=== PATIENT | male | born 1950 | race Caucasian/White ===

== ENCOUNTER 2016-10-07 01:32 | Emergency (ER) | payer OTHER ==
[2016-10-07] MEDS ORDERED: Dextrose 5%-0.45% NaCl 1,000 ML IV SCH (02:00)
--- NOTE | 2016-10-07 02:02 | EDM.PDOC ---
ED HPI GENERAL MEDICAL PROBLEM - General Chief Complaint: Diabetic Complaint Stated Complaint: [facility] Time Seen by Provider: 10/07/16 01:57 Source of Information: Reports: Patient, EMS Notes Reviewed, Family History Limitations: Reports: No Limitations - History of Present Illness INITIAL COMMENTS - FREE TEXT/NARRATIVE: pt came to his mothers place anf flopped down in a chair and turned his insulin pump off and at that point he became unresponsive. His mother was not able to get any juice or sugar into him so she called ems. Onset: Today Duration: Hour(s): Associated Symptoms: Reports: Confusion, Cough, Other (pt became unresponsive. ) denies pain Pain Score (Numeric/FACES): 0 - Related Data Allergies Allergy/AdvReac Type Severity Reaction Status Date / Time Penicillins Allergy Hives Verified 10/07/16 01:37 Home Meds: Home Meds Aspirin/Calcium Carbonate/Mag [Aspirin Buffered 325 mg Tab] 325 mg PO BID [History] Carvedilol [Coreg] 25 mg PO BID 10/07/16 [History] Ferrous Sulfate [Iron] 325 mg PO BID 10/07/16 [History] Fish Oil/[place]-3 Fatty Acids [Fish Oil 1,000 MG] 1,000 mg PO BID 10/07/16 [ History] Insulin Aspart [NovoLOG] 100 unit SUBCUT ASDIRECTED 10/07/16 [History] Insulin Pump Controller [Snap Insulin Pump Controller] 1 each MC ASDIRECTED 12/16 [History] Levothyroxine 175 mg PO DAILY 10/07/16 [History] Lisinopril/Hydrochlorothiazide [Zestoretic 20-12.5 mg Tablet] 2 each PO DAILY [History] amLODIPine [Norvasc] 5 mg PO DAILY 10/07/16 [History] atorvaSTATin [Lipitor] 40 mg PO DAILY 10/07/16 [History] ED ROS GENERAL - Review of Systems Review Of Systems: See Below Constitutional: Reports: No Symptoms HEENT: Reports: No Symptoms Respiratory: Reports: Cough Cardiovascular: Reports: No Symptoms Endocrine: Reports: Low Glucose GI/Abdominal: Reports: No Symptoms, Other (pt has a insulin pump which is now off. ) : Reports: No Symptoms Musculoskeletal: Reports: No Symptoms Skin: Reports: No Symptoms ED EXAM GENERAL NO PERIP PULSE - Physical Exam Exam: See Below Text/Narrative:: pt is now alert and is able to give some history. He evidently has not eaten all day. He came to his mothers house and collapsed in the chair. He turned his insulin pump off and he became unresponsive. He normally gets 75-80 units of insulin daily. Exam Limited By: No Limitations General Appearance: Alert, Other ( still not giving a real good history. ) Ears: Normal TMs Nose: Normal Inspection Throat/Mouth: Normal Inspection Head: Atraumatic Neck: Normal Inspection Respiratory/Chest: No Respiratory Distress Cardiovascular: Regular Rate, Rhythm GI/Abdominal: Other (pt has slight tenderness where he feels he has a hernia, There is a insulin pump in place. ) Rectal (Males) Exam: Deferred Back Exam: Normal Inspection Extremities: Normal Inspection Neurological: Alert, Other (pt is slower to respond. ) Course - Vital Signs Last Recorded V/S: Last Vital Signs Temp 35.6 C 10/07/16 01:35 Pulse 55 L 10/07/16 01:35 Resp 17 10/07/16 01:35 BP 133/65 10/07/16 01:35 Pulse Ox 92 L 10/07/16 01:35 - Orders/Labs/Meds Orders: Active Orders 24 hr Category Date Time Status Chest 1V Frontal [CR] Stat Exams 10/07/16 01:59 Ordered GLUCOSE POC LAB TO COLLECT [POC] Stat Lab 10/07/16 02:40 Ordered UA W/MICROSCOPIC [URIN] Urgent Lab 10/07/16 01:40 Uncollected Dextrose 5%-0.45% NaCl [Dextrose 5%-1/2 NS] 1,000 ml Med 10/07/16 02:00 Active IV ASDIRECTED Medication Orders Dextrose/Sodium Chloride (Dextrose 5%-1/2 Ns) 1,000 mls @ 250 mls/hr IV ASDIRECTED URIEL Last Admin: 10/07/16 02:23 Dose: 250 mls/hr Labs: Laboratory Tests 10/07/16 10/07/16 Range/Units 01:40 01:40 WBC 10.7 (4.5-11.0) K/uL RBC 4.52 (4.30-5.90) M/uL Hgb 13.0 (12.0-15.0) g/dL Hct 37.9 L (40.0-54.0) % MCV 84 (80-98) fL MCH 29 (27-31) pg MCHC 34 (32-36) % Plt Count 211 (150-400) K/uL Neut % (Auto) 79 H (36-66) % Lymph % (Auto) 13 L (24-44) % [place] % (Auto) 7 H (2-6) % Eos % (Auto) 1 L (2-4) % Baso % (Auto) 0 (0-1) % Sodium 139 L (140-148) mmol/L Potassium 3.4 L (3.6-5.2) mmol/L Chloride 103 (100-108) mmol/L Carbon Dioxide 27 (21-32) mmol/L Anion Gap 12.4 (5.0-14.0) mmol/L BUN 22 H (7-18) mg/dL Creatinine 1.0 (0.8-1.3) mg/dL Est Cr Clr Drug Dosing TNP Estimated GFR (MDRD) > 60 (>60) Glucose 75 (74-106) mg/dL Calcium 8.9 (8.5-10.1) mg/dL Total Bilirubin 0.7 (0.2-1.0) mg/dL AST 23 (15-37) U/L ALT 25 (12-78) U/L Alkaline Phosphatase 108 (46-116) U/L Total Protein 6.8 (6.4-8.2) g/dL Albumin 3.7 (3.4-5.0) g/dL Globulin 3.1 (2.3-3.5) g/dL Albumin/Globulin Ratio 1.2 (1.2-2.2) Meds: Medications Generic Name Dose Route Start Last Admin Trade Name Getachewq PRN Reason Stop Dose Admin Dextrose/Sodium Chloride 1,000 mls @ 250 mls/hr 10/07/16 02:00 10/07/16 02:23 Dextrose 5%-1/2 Ns IV 250 mls/hr ASDIRECTED [facility] Administration - Re-Assessments/Exams Free Text/Narrative Re-Assessment/Exam: 10/07/16 02:25 His did report that he had definitely eaten breakfast and lunch but probably not supper. He was traveling from [place] this afternoon. 10/07/16 02:38 pt is eating at this point and seemes quite good. His lab work looks good. His chest xray is good without infiltrates. 10/07/16 02:48 a repeat glucose was obtained which was 253. Will turn the d5 off. Departure - Departure Time of Disposition: 02:49 Disposition: Home, Self-Care 01 Condition: fair Clinical Impression: Hypoglycemia, Insulin pump in place - Discharge Information Referrals: PCP,None [Primary Care Provider] - Forms: ED Department Discharge Care Plan Goals: eat regularly, resume the insulin pump - My Orders Last 24 Hours: My Active Orders 10/07/16 01:40 UA W/MICROSCOPIC [URIN] Urgent 10/07/16 01:59 Chest 1V Frontal [CR] Stat 10/07/16 02:00 Dextrose 5%-0.45% NaCl [Dextrose 5%-1/2 NS] 1,000 ml IV ASDIRECTED 10/07/16 02:40 GLUCOSE POC LAB TO COLLECT [POC] Stat - Assessment/Plan Last 24 Hours: My Active Orders 10/07/16 01:40 UA W/MICROSCOPIC [URIN] Urgent 10/07/16 01:59 Chest 1V Frontal [CR] Stat 10/07/16 02:00 Dextrose 5%-0.45% NaCl [Dextrose 5%-1/2 NS] 1,000 ml IV ASDIRECTED 10/07/16 02:40 GLUCOSE POC LAB TO COLLECT [POC] Stat
[2016-10-07 03:00] VITALS: BP 123/65
--- NOTE | 2016-10-07 11:56 | CR ---
Chest 1V Frontal FINDINGS: There are shallow lung volumes. The heart and vascular structures are normal in appearance . No infiltrates or effusions are demonstrated. The skeletal structures are unremarkable. IMPRESSION: Negative exam.
== END 2016-10-07 03:30 | disposition home or self-care (01) ==
LOC: JP.ED 01:32
DX: E16.2 Hypoglycemia, unspecified (principal); Z96.41 Presence of insulin pump (external) (internal); Z79.4 Long term (current) use of insulin; Z79.899 Other long term (current) drug therapy; Z79.82 Long term (current) use of aspirin; Z88.0 Allergy status to penicillin
CPT/HCPCS: 36415; 71010; 71010-26; 80053; 82962; 85025; 93005; 96365; 99284-25